=== PATIENT | male | born 1965 | race Caucasian/White ===

== ENCOUNTER 2018-07-04 15:00 | Emergency (ER) | payer BC, OTHER ==
[~2018-07-04] VITALS: Ht 180.3 cm; Wt 70.3 kg
[~2018-07-04 15:00] MED LIST: KEFLEX500 MG ORAL; NKM
[2018-07-04 15:11] VITALS: BP 128/82
--- NOTE | 2018-07-04 15:17 | NUR ---
ED Nurse Note: Pt from home came in due to letf ankle pain after twisting t while playing jumping rope around 12noon today. Pt already applied ice and took ibuprofen 200mg x 2 doses. Pain is worse when he steps on his foot. Pt is AAO x4, ambulates with his crutches.
--- NOTE | 2018-07-04 15:29 | Emergency Room Report ---
History of Present Illness General Chief Complaint: Pain Source: Patient Present Illness HPI 53-year-old male patient presents ER complaining of left ankle pain for the past few hours. Reports that he was jumping rope when he suffered a "inversion injury of his left ankle. Reports pain with weightbearing, states pain is on the dorsum of his proximal left ankle extending towards his lateral malleolus. Denies tenderness to palpation. Denies swelling or ecchymosis. Reports that he is walking on crutches, crutches with him in the ER. Denies other aggravating or relieving factors. States that he took ibuprofen following the injury. Allergies: Coded Allergies: AMOXICILLIN (Verified Allergy, Unknown, 04/07/15) Patient History Past Medical History: see triage record Reviewed Nursing Documentation: PMH: Agreed; PSxH: Agreed Nursing Documentation-PMH Past Medical History: No Stated History Review of Systems All Other Systems: negative except mentioned in HPI Physical Exam Vital Signs Date Time Temp Pulse Resp B/P (MAP) Pulse Ox O2 Delivery O2 Flow Rate FiO2 07/04/18 15:11 99.0 68 18 128/82 100 Room Air Sp02 EP Interpretation: reviewed, normal General Appearance: well appearing, no apparent distress, alert, GCS 15, non- toxic Head: normocephalic, atraumatic Eyes: bilateral eye normal inspection, bilateral eye PERRL ENT: hearing grossly normal, normal pharynx, no angioedema, normal voice, uvula midline, moist mucus membranes Neck: full range of motion Respiratory: lungs clear, normal breath sounds, no rhonchi, no respiratory distress, no accessory muscle use, no wheezing, speaking full sentences Cardiovascular #1: regular rate, rhythm, no edema Cardiovascular #2: 2+ dorsalis pedis (R), 2+ dorsalis pedis (L) Musculoskeletal: back normal, digits/nails normal, gait/station normal, normal range of motion, non-tender, other - NVI, cap refill less than 2 seconds, negative syndesmotic squeeze test, no ecchymosis, no swelling, no erythema Psychiatric: mood/affect normal Skin: no rash Medical Decision Making PA Attestation Dr. Minor is my supervising Physician whom patient management has been discussed with. Diagnostic Impression: Primary Impression: Left ankle sprain ER Course Pt. presents to the ED c/o of ankle pain. Ddx considered but are not limited to fracture, sprain, strain, contusion, dislocation. No erythema, no warmth to touch, no fever, nontoxic appearing, low suspicion for septic joint. Soft compartments, no pulselessness, no pallor, no paresthesias, low suspicion for compartment syndrome at this time. Vital signs: are WNL, pt. is afebrile Ordered X-ray and pain medication. ER COURSE Declined pain medication in the ER. An X-ray of the left ankle shows no acute fracture, well-corticated ossific density distal to the medial malleolus is present, suggesting an unfused secondary ossification center or less likely an old fracture fragment. Bones otherwise unremarkable. No dislocation. Likely ankle sprain causing pain symptoms currently. Discuss results with the patient. Provided patient with copy of results. Instructed patient to followup with PCP and discuss results of report with patient, discuss need for further treatment and referral. Splint was applied to the left ankle and was checked afterwards by me showing good alignment and support with distal neurovascular functioning intact. Patient has crutches. Patient instructed on RICE method: rest, ice, compression, elevation. Patient instructed on rest, ice and heat. Patient instructed to be WBAT Contact information for orthopedic urgent care provided, follow-up with urgent care if unable to followup with primary care provider and get referral to bioinformatics support specialist. Followup with primary care provider. Discuss referral to ortho/pain management/ PT as needed. Discuss further imaging with MRI/CT as needed. Declined need for Rx for pain medication. DISCHARGE: At this time pt. is stable for d/c to home. Patient is resting comfortably, in no acute distress, nontoxic appearing, talking without difficulty. Will provide printed patient care instructions, and any necessary prescriptions. Patient instructed to follow with primary care provider in 3 - 5 days and to request further follow-up as needed. Care plan and follow up instructions have been discussed with the patient prior to discharge. Take medications as directed. Patient questions asked and answered. Patient reports understanding and agreement to treatment plan. ER precautions given, patient instructed to return to ER immediately for any new or worsening of symptoms. - Please note that this Emergency Department Report was dictated using [employer] technology software, occasionally this can lead to erroneous entry secondary to interpretation by the dictation equipment. Other X-Ray Diagnostic Results Other X-Ray Diagnostic Results : X-Ray ordered: Left ankle # of Views/Limited Vs Complete: 3 View Indication: Pain EP Interpretation: Yes PA Xray: Interpretation reviewed, by supervising MD, and agrees with findings. Interpretation: no dislocation, no soft tissue swelling, no fractures Impression: No acute disease RITCHIE Scribjeremy Text Rakesh Gaines PA-C Last Vital Signs Date Time Temp Pulse Resp B/P (MAP) Pulse Ox O2 Delivery O2 Flow Rate FiO2 07/04/18 15:11 99.0 18 128/82 100 Room Air 07/04/18 15:11 68 Status: improved Disposition: HOME, SELF-CARE Condition: Stable Patient Instructions: Ankle Sprain, [id number] Additional Instructions: Patient instructed to follow up with primary care provider and discuss further referral to orthopedics/physical therapy/pain management as needed. If unable to followup with PCP, followup with orthopedic urgent care in 5-7 days , call to schedule appointment. Patient instructed on RICE method: rest, ice, compression, elevation. Patient instructed to WBAT. Take medications as directed. Patient questions asked and answered. ER precautions given, patient instructed to return to ER immediately for any new or worsening of symptoms. [facility] [address] [facility] [address] [facility], [address] [email or web address] Avtar Gaines Jul 04, 2018 15:29
--- NOTE | 2018-07-04 16:17 | Diagnostic Imaging Report ---
EXAM: XR Left Ankle Complete, 3 or More Views CLINICAL HISTORY: PAIN TECHNIQUE: Frontal, lateral and oblique views of the left ankle. COMPARISON: none FINDINGS: Bones/joints: A well-corticated ossific density distal to the medial malleolus is present, suggesting an unfused secondary ossification center or less likely an old fracture fragment. Bones otherwise unremarkable. No dislocation. Soft tissues: No soft tissue swelling. IMPRESSION: No acute findings in the left ankle.
[2018-07-04 16:20] VITALS: BP 125/74
--- NOTE | 2018-07-04 16:20 | NUR ---
ED Nurse Note: Pt seen, treated, medically cleared for discharge by Health Care Provider. Discharge instructions given and explained to pt and verbalized understanding of teachings. All medical devices such as ID band removed. Pt is AAO x4, ambulatory and left with all personal belongings.
== END 2018-07-04 16:20 | disposition home or self-care (01) ==
LOC: EMR 15:48
DX: S93.402A Sprain of unspecified ligament of left ankle, initial encounter (principal); X50.1XXA Overexertion from prolonged static or awkward postures, initial encounter; Y93.56 Activity, jumping rope; Y92.89 Other specified places as the place of occurrence of the external cause; Z88.0 Allergy status to penicillin
CPT/HCPCS: 29515; 99283